=== PATIENT | male | born 1995 | race Caucasian/White ===

== ENCOUNTER 2022-01-31 11:15 | Emergency (ER) | payer SELFPAY ==
[2022-01-31 11:15] VITALS: BP 147/100; PULSE 106; RESP 16; TEMP 36.8; O2SAT 99; BMI 26.4
--- NOTE | 2022-01-31 11:28 | PC.NURSE ---
BRIANNE RILEY at
--- NOTE | 2022-01-31 11:29 | XR_ITS ---
PROCEDURE INFORMATION: Exam: XR Right Knee Exam date and time: 01/31/2022 11:48 AM Age: 27 years old Clinical indication: Injury or trauma; Other: Leg caught while walking down steps; Sprain or strain; Patella or knee; Right; Injury date: 01/31/22; Prior surgery; Surgery date: 6+ months; Surgery type: Meniscus repair 10 years ago; Additional info: Knee injury TECHNIQUE: Imaging protocol: XR Right knee. Views: 1 or 2 views. COMPARISON: No relevant prior exams. FINDINGS: Bones/joints: Fixation of the patella. The osseous structures are otherwise unremarkable. The joint spaces are intact. Minimal to no degenerative osteophytosis. No fractures or dislocations. Soft tissues: Normal. No swelling or abnormal density. IMPRESSION: 1. Evidence of prior knee surgery. 2. Otherwise, unremarkable knee.
--- NOTE | 2022-01-31 11:29 | XR_ITS ---
PROCEDURE INFORMATION: Exam: XR Right Femur Exam date and time: 01/31/2022 11:49 AM Age: 27 years old Clinical indication: Injury or trauma; Other: Leg caught while going down steps today; Sprain or strain; Patella or knee; Right; Injury date: 01/31/22; Prior surgery; Surgery date: 6+ months; Surgery type: Meniscus repair 10 years ago; Additional info: Knee pain TECHNIQUE: Imaging protocol: XR Right femur. Views: 2 views. COMPARISON: CR XR KNEE RT 2V 01/31/2022 11:48 AM FINDINGS: Bones/joints: Internal fixation of the patella. Otherwise, unremarkable. No fractures or dislocations. The joint spaces are intact. Soft tissues: Unremarkable. No swelling or abnormal density. IMPRESSION: 1. Evidence of previous knee surgery. 2. Otherwise, unremarkable femur.
--- NOTE | 2022-01-31 11:52 | PC.NURSE ---
pt to xray
[2022-01-31 12:11] VITALS: BP 148/87; PULSE 103; PULSE 105; RESP 16; O2SAT 96; O2SAT 99
[2022-01-31 12:21] VITALS: BP 138/94; PULSE 100; PULSE 97; RESP 16; O2SAT 97; O2SAT 98
--- NOTE | 2022-01-31 12:32 | PC.NURSE ---
ER contacting [facility] to speak with them about pt xrays
[2022-01-31 12:52] VITALS: BP 155/93; PULSE 85; O2SAT 97
--- NOTE | 2022-01-31 13:01 | PC.NURSE ---
entered pt room to update pt on additional xray order per ER MD, pt requested to speak with ER . ER at at this time
--- NOTE | 2022-01-31 13:19 | [facility].EDEXTP ---
ED Disposition Clinical Impression: Injury of patella, Knee injury Disposition: Home, Self-Care Condition on Discharge: Good Instructions: Patellar Tendinopathy, DI for Ligament Sprains Additional Instructions: Please follow-up with your primary care physician in 2 to 3 days for further management. You have also been provided a referral to orthopedics due to concern for patella tendon injury and knee ligament injury. You must be evaluated in the next 24-48 hours for further management. Please take Tylenol and ibuprofen for pain control. You have also been prescribed [place] as needed for pain control. Please keep your leg in the knee immobilizer and keep your leg in an extended position. Please return for any worsening symptoms such as worsening swelling, tightness of the skin, worsening pain, discoloration of the skin or any other concerns. Prescriptions: Hydrocod/Acet 5/325 mg [[place] 5/325mg tablet] 1 tab PO Q6HP PRN #9 tab PRN Reason: Breakthru Severe Pain Transmission Status: Received by [facility] Referrals: Provider,MD Adria [Primary Care Provider] - [facility] [Provider Group] Rogelio Guzman JR, MD [Physician] - - Critical Care Critical Care Time: No Attestation: On 01/31/22, the high probability of a clinically significant, sudden or life threatening deterioration of the following system(s) required my full and direct attention, intervention and personal management. The time I documented below is in addition to time spent performing reported procedures but includes the following listed in this critical care notation. Medical Decision Making - Medical Records Medical records reviewed: Yes: I reviewed the patient's medical records. - Ej Inquiry Pt receiving controlled substance: No Vital Signs: 01/31/22 11:15 01/31/22 12:11 01/31/22 12:21 Temperature 98.3 F Temperature Source Oral Pulse Rate 103 H 100 H Pulse Rate [Right Radial] 106 H Respiratory Rate 16 16 16 Blood Pressure 148/87 H 138/94 H Blood Pressure [Right Arm] 147/100 H Blood Pressure Mean 107 111 Blood Pressure Mean [Right Arm] 115 Blood Pressure Source Automatic Cuff Automatic Cuff Blood Pressure Source [Right Arm] Automatic Cuff Blood Pressure Position Sitting Sitting Blood Pressure Position [Right Arm] Sitting 02 Sat by Pulse Oximetry 99 99 97 Oxygen Delivery Method Room Air Room Air Room Air 01/31/22 12:52 01/31/22 13:56 Temperature 98.3 F Temperature Source Oral Pulse Rate 85 81 Pulse Rate [Right Radial] Respiratory Rate 17 Blood Pressure 155/93 H 148/80 H Blood Pressure [Right Arm] Blood Pressure Mean Blood Pressure Mean [Right Arm] Blood Pressure Source Automatic Cuff Blood Pressure Source [Right Arm] Blood Pressure Position Sitting Blood Pressure Position [Right Arm] 02 Sat by Pulse Oximetry 97 Oxygen Delivery Method Room Air Room Air - Lab Data Lab results reviewed: Yes: I reviewed the patient's lab results. Orders (Tests/Meds): ED MEDICATIONS Discontinued Medications Generic Name Dose Route Start Last Admin Trade Name Freq PRN Reason Stop Dose Admin Acetaminophen 1,000 mg 01/31/22 11:29 Acetaminophen 500mg Tab PO 01/31/22 11:30 ONCE ONE Hydrocodone Bitart/Acetaminophen 1 tab 01/31/22 11:41 01/31/22 12:09 Hydrocodone/Apap 5/325 Mg Tablet PO 01/31/22 11:42 1 tab ONCE ONE Administration Medical Decision Narrative: Mr. Saul is a 27-year-old male presenting to the emergency department with isolated right knee pain after twisting his right lower extremity. Patient is neurovascularly intact and hemodynamically stable on arrival. On physical exam patient has limited flexion of the right knee, keeps leg in an extended position. No significant swelling or overlying skin changes noted. No laxity of the joint. No sensory deficits. No obvious gross deformities. X-ray of the knee and femur are nonactionable. Given phy
--- NOTE | 2022-01-31 13:20 | PC.NURSE ---
Radiology order has been cancelled
[2022-01-31 13:56] VITALS: BP 148/80; PULSE 81; RESP 17; TEMP 36.8; O2SAT 98
== END 2022-01-31 13:58 | disposition home or self-care (01) ==
PROVIDERS: Emergency Provider Student in an Organized Health Care Education/Training Program
DX: S83.8X1A Sprain of other specified parts of right knee, initial encounter (principal); W10.9XXA Fall (on) (from) unspecified stairs and steps, initial encounter; Y92.89 Other specified places as the place of occurrence of the external cause
CPT/HCPCS: 73552; 73560; 99283